=== PATIENT | female | born 1965 | race Caucasian/White ===

== ENCOUNTER 2024-10-14 19:12 | Inpatient (IN) | payer OTHER ==
[~2024-10-14] VITALS: Ht 161.3 cm; Wt 45.0 kg
[2024-10-14 19:22] VITALS: O2SAT 97
[2024-10-14 20:10] LABS: BASOPHILS % 0.5 % (0.0-2.0); EOSINOPHILS % 3.5 % (0.0-5.0); HEMATOCRIT. 38.4 % (36.0-48.0); HEMOGLOBIN. 13.0 g/dL (12.0-16.0); LYMPHOCYTES % 40.7 % (20.0-50.0); MEAN PLATELET VOLUME 7.6 fl (7.4-10.4); MONOCYTES % 8.4 % (2.0-8.0); NEUTROPHILS % 46.9 % (40.0-76.0); PLATELET 211 x1000/uL (130-400); RED BLOOD CELL COUNT 4.33 mill/uL (4.2-5.4); RED CELL DISTRIBUTION WIDTH 13.5 % (11.6-14.6)
[2024-10-14 20:21] LABS: CREATININE 1.1 mg/dL (0.6-1.0); ETHANOL BLOOD < 10 mg/dL (<10); UREA NITROGEN BLOOD 13 mg/dL (9-23)
[2024-10-14 20:23] LABS: ASPARTATE AMINOTRANSFERASE 16 IU/L (<34); BILIRUBIN DIRECT < 0.1 mg/dL (<=3.0); BILIRUBIN TOTAL 0.3 mg/dL (0.1-1.0); PROTEIN TOTAL 6.6 g/dL (6.0-8.3)
[2024-10-14 23:22] VITALS: BP 146/95; PULSE 83; RESP 17; TEMP 37.1; O2SAT 98
[2024-10-14 23:30] VITALS: BP 146/95; PULSE 82; RESP 14; TEMP 37.0852
[2024-10-15] VITALS (7 sets, daily range): BP systolic 118–137; BP diastolic 76–98; PULSE 71–93; RESP 12–22; TEMP 36.4–36.9; O2SAT 96–100
[2024-10-15] MEDS: ACETAMINOPHEN 325MG TABLET PO NR (00:15)
[2024-10-15] MEDS ORDERED: IPRATROPIUM/ALBUTEROL 0.5-3(2.5)MG/3ML NEB HHN PRN (00:45)
[2024-10-15] MEDS ORDERED: ACETAMINOPHEN 325MG TABLET PO PRN ×2 (00:45)
[2024-10-15] MEDS ORDERED: CLONIDINE 0.1MG TABLET PO PRN (00:45)
[2024-10-15] MEDS ORDERED: DOCUSATE SODIUM 100MG CAPSULE PO PRN (00:45)
[2024-10-15] MEDS ORDERED: LORAZEPAM 2MG/ML UD SYRINGE IV PRN (00:45)
[2024-10-15] MEDS ORDERED: ONDANSETRON HCL 4MG/2ML INJ IV PRN (00:45)
[2024-10-15] MEDS ORDERED: GUAIFENESIN 200MG/10ML SUGAR FREE UDC PO PRN (00:45)
[2024-10-15] MEDS: HYDROCODONE/ACETAMINOPHEN 5/325MG TABLET PO PRN (01:21)
[2024-10-15] MEDS: SODIUM CHLORIDE 0.9% 1,000 ML IV SCH (01:24)
[2024-10-15] MEDS: GABAPENTIN 300MG CAPSULE PO SCH (02:00)
[2024-10-15] MEDS: POTASSIUM CHLORIDE 20MEQ/PACKET PO NR (02:25)
[2024-10-15] MEDS ORDERED: MORPHINE SULFATE 2 MG/ML INJ (NOT FOR IM USE) IV ONE (03:29)
[2024-10-15] MEDS ORDERED: MORPHINE SULFATE 2 MG/ML INJ (NOT FOR IM USE) IV NR (04:23)
[2024-10-15] MEDS: QUETIAPINE FUMARATE 50MG TABLET PO SCH (08:25)
[2024-10-15] MEDS: LEVETIRACETAM 500MG PREMIX 100 ML IV SCH (08:26)
[2024-10-15] MEDS: SERTRALINE HCL 100MG TABLET PO SCH (08:27)
[2024-10-15 10:56] LABS: PHOSPHORUS 3.3 mg/dL (2.5-4.9)
[2024-10-15 11:04] LABS: C REACTIVE PROTEIN HIGH SENS 13.41 mg/l (<1.00)
[2024-10-15 12:05] LABS: SICKLE CELL SCREEN NEGATIVE (NEGATIVE)
[2024-10-15 12:22] LABS: ERYTHROCYTE SEDIMENTATION RATE 7 mm/hr (0-30)
[2024-10-15] MEDS: HYDROCODONE/ACETAMINOPHEN 7.5/325MG TABLET PO PRN (13:58)
[2024-10-15] MEDS ORDERED: NALOXONE HCL 0.4MG/ML VIAL IV PRN (14:15)
[2024-10-15] MEDS: MIRTAZAPINE 15MG TABLET PO SCH (21:11)
[2024-10-15] MEDS: FAMOTIDINE 20MG TABLET PO SCH (21:18)
[2024-10-16] VITALS: BP 138/99; PULSE 73; RESP 16; TEMP 36.7; O2SAT 96
[2024-10-16 04:00] VITALS: BP 135/97; PULSE 75; RESP 20; TEMP 36.8; O2SAT 99
[2024-10-16 08:00] VITALS: BP 120/97; PULSE 76; RESP 13; TEMP 36.5; O2SAT 97
[2024-10-16 08:33] LABS: BASOPHILS % 0.6 % (0.0-2.0); EOSINOPHILS % 5.1 % (0.0-5.0); HEMATOCRIT. 39.6 % (36.0-48.0); HEMOGLOBIN. 13.5 g/dL (12.0-16.0); LYMPHOCYTES % 40.2 % (20.0-50.0); MEAN PLATELET VOLUME 8.3 fl (7.4-10.4); MONOCYTES % 9.7 % (2.0-8.0); NEUTROPHILS % 44.4 % (40.0-76.0); PLATELET 203 x1000/uL (130-400); RED BLOOD CELL COUNT 4.52 mill/uL (4.2-5.4); RED CELL DISTRIBUTION WIDTH 13.1 % (11.6-14.6)
[2024-10-16 08:43] LABS: CREATININE 0.9 mg/dL (0.6-1.0); TRIGLYCERIDE 171 mg/dL (0-150); UREA NITROGEN BLOOD 17 mg/dL (9-23)
[2024-10-16 08:44] LABS: LDL CHOLESTEROL 136 mg/dL (5-100)
[2024-10-16 08:45] LABS: ASPARTATE AMINOTRANSFERASE 16 IU/L (<34); BILIRUBIN DIRECT 0.1 mg/dL (<=3.0)
[2024-10-16 08:46] LABS: BILIRUBIN TOTAL 0.4 mg/dL (0.1-1.0); PROTEIN TOTAL 6.4 g/dL (6.0-8.3)
[2024-10-16 08:47] LABS: T4 FREE 1.01 ng/dL (0.89-1.76)
[2024-10-16 09:07] LABS: BG BASE EXCESS -0.7 mmol/L (-2.0-3.0); BG CARBOXYHEMOGLOBIN 1.9 % (0.5-1.5); BG DEOXYHEMOGLOBIN 4.6 % (0.0-5.0); BG FRACTION INSPIRED OXYGEN 21; BG HCO3 ACT 24.6 mmol/L (21.0-28.0); BG METHEMOGLOBIN 0.3 % (0.5-1.5); BG OXYGEN SATURATION 95.3 % (94.0-98.0); BG OXYHEMOGLOBIN 93.2 % (94.0-98.0); BG PCO2 43.5 mmHg (32.0-45.0); BG PH 7.371 (7.350-7.450); BG PO2 80.1 mmHg (83.0-108.0); BG SAMPLE SITE RIGHT BRACHIAL; BG TOTAL HEMOGLOBIN 12.3 g/dL (12.0-16.0); BG VENT MODE ROOM AIR
[2024-10-16 09:43] LABS: CLARITY URINE CLEAR (CLEAR); COLOR URINE YELLOW (YELLOW); GLUCOSE URINE NEGATIVE (NEGATIVE); KETONES URINE NEGATIVE (NEGATIVE); LEUKOCYTE ESTERASE URINE NEGATIVE (NEGATIVE); NITRITE URINE NEGATIVE (NEGATIVE); OCCULT BLOOD URINE NEGATIVE (NEGATIVE); PH URINE 6.0 (4.5-8.0); PROTEIN URINE NEGATIVE (NEGATIVE); SPECIFIC GRAVITY URINE 1.016 (1.005-1.030); UROBILINOGEN URINE 0.2 E.U./dL (0.2-1.0)
[2024-10-16 10:08] LABS: SODIUM URINE RANDOM 160 mEq/L
[2024-10-16] MEDS: ENOXAPARIN 40MG/0.4ML SYR SUBCUT SCH (10:14)
[2024-10-16 10:15] LABS: *AMPHETAMINES SCREEN URINE NEGATIVE (NEGATIVE); *BARBITURATES SCREEN URINE NEGATIVE (NEGATIVE); *BENZODIAZEPINES SCREEN URINE NEGATIVE (NEGATIVE); *COCAINE SCREEN URINE NEGATIVE (NEGATIVE); CANNABINOID URINE SCREEN PRESUMPTIVE POSITIVE (NEGATIVE); ECSTASY MDMA SCREEN URINE NEGATIVE (NEGATIVE); METHADONE URINE SCREEN NEGATIVE (NEGATIVE); OPIATES URINE SCREEN PRESUMPTIVE POSITIVE (NEGATIVE); PHENCYCLIDINE URINE SCREEN NEGATIVE (NEGATIVE)
[2024-10-16 12:00] VITALS: BP 147/95; PULSE 75; RESP 15; TEMP 36.5; O2SAT 96
[2024-10-16 12:12] LABS: OSMOLALITY URINE 571 mOsm/kg (500-850)
[2024-10-16] MEDS: MULTIVITAMINS,THER W-MINERALS TABLET PO SCH (14:45)
[2024-10-16 16:00] VITALS: BP 107/82; PULSE 77; RESP 17; TEMP 36.6; O2SAT 97
[2024-10-16 20:00] VITALS: BP 115/80; PULSE 86; RESP 29; TEMP 36.7; O2SAT 98
[2024-10-16] MEDS: LEVETIRACETAM 500MG TABLET PO SCH (20:37)
[2024-10-16] MEDS: PANTOPRAZOLE 40MG DR TABLET PO SCH (20:37)
[2024-10-17] VITALS: BP 126/85; PULSE 76; RESP 13; TEMP 36.6; O2SAT 94; O2SAT 99
[2024-10-17 04:00] VITALS: BP 112/86; PULSE 84; RESP 23; TEMP 36.6; O2SAT 98
[2024-10-17] MEDS ORDERED: GABA-1180 PO (07:29)
[2024-10-17] MEDS ORDERED: KEPP500 PO (07:29)
[2024-10-17] MEDS ORDERED: SERT100T PO (07:30)
[2024-10-17] MEDS ORDERED: QUET50TA PO (07:30)
[2024-10-17] MEDS ORDERED: IBUP-2029 MT (07:30)
[2024-10-17] MEDS ORDERED: TRAM50TA3 MT (07:30)
[2024-10-17] MEDS ORDERED: MIRT-89 PO (07:30)
[2024-10-17 08:00] VITALS: BP 135/105; PULSE 93; RESP 17; TEMP 36.9; O2SAT 100
[2024-10-17] MEDS: HALOPERIDOL LACTATE 5MG/ML VIAL IM SCH (08:41)
[2024-10-17] MEDS: DICLOFENAC SODIUM 75MG DR TABLET PO SCH (08:41)
[2024-10-17 12:00] VITALS: BP 114/77; PULSE 78; RESP 20; TEMP 36.6; O2SAT 96
[2024-10-17 12:46] VITALS: BP 114/77; PULSE 78; RESP 20; TEMP 97.1
[2024-10-17 13:50] VITALS: BP 114/77; PULSE 78; RESP 20
== END 2024-10-17 14:01 | disposition home or self-care (01) | DRG 53 ==
LOC: ER 19:12 → 3WST 21:57 → EDBEDREQTM 22:06 → EDBEDREQ 22:06 → 7EST 10-17 11:45
PROVIDERS: ADMIT Hospitalist; ATTEND Hospitalist
PROC: 4A00X4Z Measurement of Central Nervous Electrical Activity, External Approach (ICD-10-PCS; principal; 2024-10-16)
DX: G40.909 Epilepsy, unspecified, not intractable, without status epilepticus (principal); N17.9 Acute kidney failure, unspecified; F31.9 Bipolar disorder, unspecified; G89.29 Other chronic pain; M16.11 Unilateral primary osteoarthritis, right hip; E87.6 Hypokalemia; F17.210 Nicotine dependence, cigarettes, uncomplicated; Z59.01 Sheltered homelessness; Z88.2 Allergy status to sulfonamides
CPT/HCPCS: 36415; 36600; 71045; 73522; 76700; 80048; 80061; 80076; 80305; 80320; 81003; 82375; 82550; 82805; 83605; 83735; 83930; 83935; 84100; 84300; 84439; 84443; 85025; 85651; 85660; 86038; 86141; 93005; 95816; 97162; 97166; 99285; A4606; J1630; J1650; J1953; J2270; G0480

== ENCOUNTER 2024-10-27 11:37 | Emergency (ER) | payer OTHER, MEDICAID ==
[~2024-10-27] VITALS: Ht 160 cm; Wt 60.0 kg
[~2024-10-27 11:37] MED LIST: GABA-1180 PO; IBUP-2029 MT; KEPP500 PO; MIRT-89 PO; QUET50TA PO; SERT100T PO; TRAM50TA3 MT
[2024-10-27 11:40] VITALS: O2SAT 98
[2024-10-27] MEDS ORDERED: BACLOFEN 20MG TABLET PO ONE (12:30)
[2024-10-27] MEDS: HYDROXYZINE 25MG TABLET PO ONE (12:31)
[2024-10-27] MEDS: BACLOFEN 10MG TABLET PO NR (12:31)
[2024-10-27] MEDS: KETOROLAC 30MG/ML VIAL IM ONE (12:32)
[2024-10-27] MEDS ORDERED: BACL20TA MT (15:41)
[2024-10-27] MEDS ORDERED: KETO10TA2 MT (15:41)
[2024-10-27 15:59] VITALS: BP 110/74; PULSE 72; RESP 18; TEMP 36.8; O2SAT 98
== END 2024-10-27 15:59 | disposition home or self-care (01) ==
LOC: ER 11:37
DX: M54.50 Low back pain, unspecified (principal); R56.9 Unspecified convulsions; F12.90 Cannabis use, unspecified, uncomplicated; Z79.899 Other long term (current) drug therapy; Z88.2 Allergy status to sulfonamides
CPT/HCPCS: 72131; 96372; 99285; J1885; Z7610